=== PATIENT | male | born 1970 | race Caucasian/White ===

== ENCOUNTER 2018-01-28 06:51 | Inpatient (IN) | payer BC ==
[~2018-01-28] VITALS: Ht 175.3 cm; Wt 79.5 kg
[~2018-01-28 06:51] MED LIST: ASPIR 8181 M1 PO; ATORVASTATIN CA80 MG PO; CLOPIDOGREL75 MG PO; FISH OIL PO; FLEXERIL5 MG PO; MEDROL DOSEPAK4 MG PO; NOHOMEMEDS; OMEGA III EPA1000 MG PO; ULTRAM50 MG PO; VITAMIN D PO; VITAMIN D32000 UNI1 PO
[2018-01-28 07:29] LABS: HEMATOCRIT 43.9 % (38.0-50.0); HEMOGLOBIN 15.2 G/DL (12.5-16.6); MCH 33.3 PG (29.0-34.0); MCHC 34.6 G/DL (30.0-36.0); MCV 96.3 FL (86-99); PLATELET COUNT 133 K/uL (156-360); RBC DIS.WIDTH-CV 11.8 % (11.8-14.6); RBC DIS.WIDTH-SD 41.8 % (39-53); RED BLOOD COUNT 4.56 M/uL (4.00-5.50); WHITE BLOOD COUNT 11.2 K/uL (4.1-10.2)
[2018-01-28 07:39] LABS: INTER. NORMALIZED RATIO 1.1
[2018-01-28 07:42] LABS: D-DIMER ELISA < 150.00 ng/mLDDU (<230); PTT 26.2 SEC (25-37)
[2018-01-28 07:53] LABS: TROP-I INTERPRETATION NEGATIVE; TROPONIN-I < 0.01 ng/mL (0.0-0.30)
[2018-01-28 08:03] LABS: ALBUMIN 3.9 G/DL (3.2-4.8); ALKALINE PHOSPHATASE 39 IU/L (3-129); ALT (GPT) 32 IU/L (3-49); AST (GOT) 29 IU/L (2-34); CHLORIDE 107 MEQ/L (99-109); CREATININE 0.9 MG/DL (0.6-1.3); GFR ESTIMATE (CALCULATED) > 59 mL/min/ (58.99-99999); GLUCOSE 105 mg/dL (70-99); POTASSIUM 4.2 MEQ/L (3.7-5.4); SODIUM 142 MEQ/L (136-147); TOTAL BILIRUBIN 0.7 MG/DL (0.0-1.0); TOTAL PROTEIN 6.5 G/DL (6.4-8.3); UREA NITROGEN (BUN) 21 mg/dL (9-23)
[2018-01-28] MEDS ORDERED: LIPITOR40 MG PO (08:51)
[2018-01-28] MEDS ORDERED: TRAZODONE HCL50 MG PO (08:51)
[2018-01-28] MEDS ORDERED: ASCORBIC ACID500 M3 PO (08:52)
[2018-01-28] MEDS ORDERED: TAMSULOSIN HCL0.4 MG PO (08:52)
[2018-01-28 11:11] VITALS: BP 105/60
[2018-01-28 13:20] LABS: TROPONIN-I 0.68 ng/mL (0.0-0.30)
[2018-01-28 13:21] LABS: TROP-I INTERPRETATION POSITIVE
[2018-01-28 17:20] VITALS: BP 100/59
[2018-01-28 17:44] LABS: TROP-I INTERPRETATION POSITIVE; TROPONIN-I 1.78 ng/mL (0.0-0.30)
[2018-01-28 19:37] VITALS: BP 106/57
[2018-01-28 23:20] VITALS: BP 101/54
[2018-01-28 23:26] LABS: TROP-I INTERPRETATION POSITIVE
[2018-01-28 23:27] LABS: TROPONIN-I 1.87 ng/mL (0.0-0.30)
[2018-01-29 04:58] VITALS: BP 103/59
[2018-01-29 05:44] LABS: TROP-I INTERPRETATION POSITIVE; TROPONIN-I 1.54 ng/mL (0.0-0.30)
[2018-01-29 05:47] LABS: BASOPHIL (%) 0.6 % (0-1); EOSINOPHIL (%) 0.1 % (0-5); HEMATOCRIT 38.2 % (38.0-50.0); IMMATURE GRANULOCYTE (%) 0.3 % (0.0-0.7); LYMPHOCYTE (%) 10.8 % (15-42); LYMPHOCYTE COUNT 0.7 K/uL (1.0-2.8); MCHC 34.3 G/DL (30.0-36.0); MCV 96.2 FL (86-99); MONOCYTE (%) 4.9 % (3-12); MONOCYTE COUNT 0.3 K/uL (0-0.8); NEUTROPHIL (%) 83.3 % (45-76); NEUTROPHIL COUNT 5.6 K/uL (1.8-6.4); PLATELET COUNT 117 K/uL (156-360); RBC DIS.WIDTH-SD 42.7 % (39-53); RED BLOOD COUNT 3.97 M/uL (4.00-5.50); WHITE BLOOD COUNT 6.7 K/uL (4.1-10.2)
[2018-01-29 05:58] LABS: HEMOGLOBIN 13.1 G/DL (12.5-16.6)
[2018-01-29 06:22] LABS: ALBUMIN 3.3 G/DL (3.2-4.8); ALKALINE PHOSPHATASE 33 IU/L (3-129); ALT (GPT) 37 IU/L (3-49); AST (GOT) 33 IU/L (2-34); CHLORIDE 108 MEQ/L (99-109); CREATININE 0.9 MG/DL (0.6-1.3); GFR ESTIMATE (CALCULATED) > 59 mL/min/ (58.99-99999); GLUCOSE 102 mg/dL (70-99); SODIUM 137 MEQ/L (136-147); TOTAL BILIRUBIN 0.7 MG/DL (0.0-1.0); TOTAL PROTEIN 5.6 G/DL (6.4-8.3); UREA NITROGEN (BUN) 14 mg/dL (9-23)
[2018-01-29 06:28] LABS: POTASSIUM 3.3 MEQ/L (3.7-5.4)
[2018-01-29 08:55] VITALS: BP 145/74
[2018-01-29 11:43] VITALS: BP 118/64
[2018-01-29 12:37] LABS: TROP-I INTERPRETATION POSITIVE; TROPONIN-I 1.18 ng/mL (0.0-0.30)
[2018-01-29 13:12] LABS: C DIFF TOXIN NEGATIVE (NEGATIVE)
[2018-01-29 14:02] LABS: STOOL OCCULT BLD 1ST SPECIMEN NEGATIVE
[2018-01-29 15:55] VITALS: BP 108/64
[2018-01-29 17:17] LABS: TROP-I INTERPRETATION POSITIVE
[2018-01-29 19:14] VITALS: BP 114/66
[2018-01-29 23:09] LABS: TROP-I INTERPRETATION POSITIVE
[2018-01-29 23:23] LABS: TROPONIN-I 0.79 ng/mL (0.0-0.30)
[2018-01-29 23:40] VITALS: BP 113/58
[2018-01-30 03:59] VITALS: BP 104/57
[2018-01-30 05:55] LABS: BASOPHIL (%) 0.7 % (0-1); EOSINOPHIL (%) 2.2 % (0-5); EOSINOPHIL COUNT 0.1 K/uL (0-0.3); HEMATOCRIT 37.6 % (38.0-50.0); HEMOGLOBIN 12.6 G/DL (12.5-16.6); IMMATURE GRANULOCYTE (%) 0.3 % (0.0-0.7); LYMPHOCYTE (%) 25.9 % (15-42); LYMPHOCYTE COUNT 1.5 K/uL (1.0-2.8); MCH 32.7 PG (29.0-34.0); MCHC 33.5 G/DL (30.0-36.0); MCV 97.7 FL (86-99); MONOCYTE (%) 7.3 % (3-12); MONOCYTE COUNT 0.4 K/uL (0-0.8); NEUTROPHIL (%) 63.6 % (45-76); NEUTROPHIL COUNT 3.8 K/uL (1.8-6.4); PLATELET COUNT 106 K/uL (156-360); RBC DIS.WIDTH-CV 12.1 % (11.8-14.6); RBC DIS.WIDTH-SD 43.5 % (39-53); RED BLOOD COUNT 3.85 M/uL (4.00-5.50); WHITE BLOOD COUNT 5.9 K/uL (4.1-10.2)
[2018-01-30 06:13] LABS: TROP-I INTERPRETATION POSITIVE; TROPONIN-I 0.73 ng/mL (0.0-0.30)
[2018-01-30 06:21] LABS: CHLORIDE 111 MEQ/L (99-109); GFR ESTIMATE (CALCULATED) > 59 mL/min/ (58.99-99999); GLUCOSE 94 mg/dL (70-99); POTASSIUM 3.6 MEQ/L (3.7-5.4); SODIUM 141 MEQ/L (136-147); UREA NITROGEN (BUN) 12 mg/dL (9-23)
[2018-01-30 07:46] VITALS: BP 122/59
[2018-01-30 10:38] VITALS: BP 124/59
[2018-01-30] MEDS ORDERED: FLAGYL500 MG PO (11:08)
[2018-01-30] MEDS ORDERED: CIPRO500 MG PO (11:08)
[2018-01-30] MEDS ORDERED: PEPCID20 MG PO (11:08)
[2018-01-30] MEDS ORDERED: CLOPIDOGREL75 MG PO (11:15)
== END 2018-01-30 12:05 | disposition home or self-care (01) | DRG 392 ==
LOC: EME → EDBD 06:51 → EDOF 09:48 → ENRESERV 09:57 → 4SOUTH 11:01 → 4EAST 13:42 → 4SOUTH 13:42 → ENRESERV 14:05 → 4EAST 17:16 → ENPENDDIS 01-30 → ENRESERV 01-30 09:10 → CANRESERV 01-30 09:44 → 4EAST 01-30 12:05
PROVIDERS: Emergency Medicine Emergency Medical Services; Hospitalist; Internal Medicine
DX: K52.9 Noninfective gastroenteritis and colitis, unspecified (principal); R55 Syncope and collapse; R79.89 Other specified abnormal findings of blood chemistry; E87.6 Hypokalemia; R19.5 Other fecal abnormalities; S00.81XA Abrasion of other part of head, initial encounter; W19.XXXA Unspecified fall, initial encounter; Y92.009 Unspecified place in unspecified non-institutional (private) residence as the place of occurrence of the external cause; I95.9 Hypotension, unspecified; R07.81 Pleurodynia; I25.10 Atherosclerotic heart disease of native coronary artery without angina pectoris; A69.20 Lyme disease, unspecified; I10 Essential (primary) hypertension; E78.5 Hyperlipidemia, unspecified; Z95.5 Presence of coronary angioplasty implant and graft; Z80.9 Family history of malignant neoplasm, unspecified; Z82.49 Family history of ischemic heart disease and other diseases of the circulatory system
CPT/HCPCS: 70450; 71045; 80048; 80053; 82272; 83630; 84484; 85025; 85027; 85379; 85610; 85730; 87177; 87329; 87493; 93005; 93306; 93880; 99281; 99285; J0744; J1650; J7030; S0028; S0030